=== PATIENT | male | born 1940 | race Caucasian/White ===

== ENCOUNTER → 2018-05-02 | Outpatient (CLI) | payer MEDICARE, OTHER ==
[~2018-05-02] MED LIST: REGADENOSON 0.4 MG/5 ML SYRINGE ONE
== END | disposition home or self-care (01) ==
LOC: CFH 08:27
PROVIDERS: ATTEND Internal Medicine
DX: I10 Essential (primary) hypertension (principal); R07.9 Chest pain, unspecified; E78.2 Mixed hyperlipidemia; E55.9 Vitamin D deficiency, unspecified; E03.9 Hypothyroidism, unspecified; K21.9 Gastro-esophageal reflux disease without esophagitis
CPT/HCPCS: 78452; 93017; A9502; J2785

== ENCOUNTER 2020-11-04 08:51 | Emergency (ER) | payer MEDICARE, OTHER ==
[~2020-11-04] VITALS: Ht 172.7 cm; Wt 74.2 kg
--- NOTE | 2020-11-04 09:10 | NUR ---
teletype clerk: blow and clamp in triage
[2020-11-04] MEDS ORDERED: TRANEXAMIC ACID 100 MG/ML, 10ML ONE (09:27)
[2020-11-04] MEDS ORDERED: FINA5TAB4 PO (09:35)
[2020-11-04] MEDS ORDERED: LEVO50TA PO (09:35)
[2020-11-04] MEDS ORDERED: OMEP-110 PO (09:35)
[2020-11-04] MEDS ORDERED: ATOR-2 PO (09:35)
[2020-11-04] MEDS ORDERED: PRED5TAB PO (09:35)
[2020-11-04] MEDS ORDERED: AMLO-211 PO (09:35)
--- NOTE | 2020-11-04 09:55 | NUR ---
DR RICHARDSON AT BEDSIDE, TXA AND NASAL BALLOON. PT TOLLERATED WELL AND DENIES ANY SENSATION OF BLEEDING. PT CLEANED AND WATER AT BEDSIDE FOR SWISH AND SPIT. CALL LIGHT W/I REACH
[2020-11-04] MEDS ORDERED: TRANEXAMIC ACID 100 MG/ML, 10ML TP ONE (10:00)
--- NOTE | 2020-11-04 10:32 | NUR ---
NO ACTIVE BLEEDING NOTED. PT VSS AND HAS NO COMPLAINTS AT THIS TIME. CHART UP FOR RECHECK. PT AWARE
[2020-11-04 10:33] VITALS: BP 107/74
--- NOTE | 2020-11-04 11:30 | NUR ---
Patient/Caregiver given discharge instructions and they have confirmed that they understand the instructions. Patient ambulatory with steady gait. NAD, all questions answered appropriately, denies additional needs at this time. No personal belongings left in room after discharge.
== END 2020-11-04 11:32 | disposition home or self-care (01) ==
LOC: ED 11:30
DX: R04.0 Epistaxis (principal); Z87.891 Personal history of nicotine dependence
CPT/HCPCS: 30901; 99284